=== PATIENT | male | born 1995 | race Caucasian/White ===

== ENCOUNTER 2017-03-15 08:40 | Emergency (ER) | payer BC ==
[~2017-03-15] VITALS: Wt 75.8 kg
[2017-03-15] MEDS ORDERED: ACET500C5 PO (09:16)
[2017-03-15] MEDS ORDERED: AMOX500C2 PO (09:16)
[2017-03-15] MEDS ORDERED: IBUP-1542 PO (09:16)
[2017-03-15] MEDS ORDERED: FLUT9.9S NASAL (09:17)
[2017-03-15] MEDS ORDERED: CETI10CA PO (09:17)
--- NOTE | 2017-03-15 09:21 | ERD ---
ER Documentation Chief Complaint Chief Complaint RIGHT EAR PAIN HPI This is a 21-year-old male who presents the emergency department today for complaints of right earache and fever that started last night. Patient states a couple days ago his left ear was bothering with it seemed to improve. Denies any other symptoms. States that he took Advil last night. ROS All systems reviewed and are negative except as per history of present illness. Medications Home Meds Active Scripts Fluticasone Propionate (Flonase Allergy Relief) 9.9 Ml [place].susp, 1 SPRAY NASAL DAILY, #1 BOTTLE TO EACH NOSTRIL Prov:GLORY JOSEPH PA-C 03/15/17 Cetirizine Hcl* (Zyrtec*) 10 Mg Capsule, 10 MG PO DAILY, #14 TAB.CHEW Prov:GLORY JOSEPH PA-C 03/15/17 Acetaminophen* (Tylophen*) 500 Mg Capsule, 1 CAP PO Q6H Y for PAIN AND OR ELEVATED TEMP, #30 CAP Prov:GLORY JOSEPH PA-C 03/15/17 Ibuprofen* (Motrin*) 600 Mg Tab, 600 MG PO Q6, #30 TAB Prov:GLORY JOSEPH PA-C 03/15/17 Amoxicillin* (Amoxicillin*) 500 Mg Cap, 500 MG PO TID for 10 Days, CAP Prov:GLORY JOSEPH PA-C 03/15/17 PMhx/Soc Medical and Surgical Hx: pt denies Medical Hx, pt denies Surgical Hx Hx Alcohol Use: No Hx Substance Use: No Hx Tobacco Use: No Physical Exam Vitals Vital Signs Date Time Temp Pulse Resp B/P Pulse Ox O2 Delivery O2 Flow Rate FiO2 03/15/17 08:41 98.1 91 18 130/87 99 Physical Exam Const: NAD Head: Atraumatic Eyes: Normal Conjunctiva ENT: Right ear with TM erythema. Left ear TM normal. Nose no drainage. Throat no erythema no exudate no vesicles Neck: Full range of motion..~ No meningismus. Resp: Clear to auscultation bilaterally Cardio: Regular rate and rhythm, no murmurs Abd: Soft, non tender, non distended. Normal bowel sounds Skin: No petechiae or rashes Neur: Awake and alert Psych: Normal Mood and Affect Results 24 hrs Current Medications Medications (Trade) Dose Ordered Sig/Antwon Route PRN Reason Start Time Stop Time Status Last Admin Dose Admin Ibuprofen (Motrin) 800 mg ONCE ONCE PO 03/15/17 09:30 03/15/17 09:31 03/15/17 09:11 Procedures/MDM This is a 21-year-old male presents emergency department today complaining of right ear pain and fevers that started last night. On physical exam patient has TM erythema. Symptoms at this time is consistent with otitis media. Low suspicion for mastoiditis, otitis externa. Low suspicion for sepsis, severe acute bacterial infection Patient appear to have some nasal congestion as well and he was also given a prescription for Flonase and Zyrtec in addition to Tylenol Motrin. Patient was given Motrin here in the emergency department. At this time the patient is stable for discharge and outpatient management. Patient should follow up with their PCP in the next 1-2 days. They may return to the emergency department sooner for any persistent or worsening of symptoms. Patient understood and agreed with the plan. Departure Diagnosis: Primary Impression: Right ear pain Condition: Fair Patient Instructions: Otitis Media, Abx Tx (Adult) Referrals: your PCP Additional Instructions: Call your primary care doctor TOMORROW for an appointment during the next 1-2 days.See the doctor sooner or return here if your condition worsens before your appointment time. Take antibiotics as prescribed. Take Tylenol every 4 hours or Motrin every 6 hours for pain or fever Take Flonase and Zyrtec for nasal congestion. Do not put anything in the ear including Q-tips GLORY JOSEPH PA-C Mar 15, 2017 09:21
[2017-03-15] MEDS ORDERED: IBUPROFEN 800 MG TAB PO ONE (09:30)
== END 2017-03-15 10:03 | disposition home or self-care (01) ==
LOC: FTE 08:40
DX: H92.01 Otalgia, right ear (principal)
CPT/HCPCS: Z7502; Z7610; 99283